=== PATIENT | female | born 1995 | race Caucasian/White ===

== ENCOUNTER → 2019-12-24 13:12 | Outpatient (BNVA) | payer BC, SELFPAY | PROVIDERS: Visit Provider Obstetrics & Gynecology | DX: Z01.89 Encounter for other specified special examinations (principal) | CPT/HCPCS: 84315 ==

== ENCOUNTER → 2020-01-19 13:25 | Outpatient (BNVA) | payer BC, SELFPAY | PROVIDERS: Visit Provider Nurse Practitioner Women's Health | DX: Z01.89 Encounter for other specified special examinations (principal) | CPT/HCPCS: 84315 ==

== ENCOUNTER → 2020-02-01 14:15 | Outpatient (BNVA) | payer BC, SELFPAY | PROVIDERS: Visit Provider Obstetrics & Gynecology | DX: Z36.89 Encounter for other specified antenatal screening (principal); Z3A.26 26 weeks gestation of pregnancy | CPT/HCPCS: 76816 ==

== ENCOUNTER → 2020-02-15 13:51 | Outpatient (BNVA) | payer BC, SELFPAY | PROVIDERS: Visit Provider Obstetrics & Gynecology | DX: Z34.93 Encounter for supervision of normal pregnancy, unspecified, third trimester (principal); Z04.89 Encounter for examination and observation for other specified reasons | CPT/HCPCS: 82950; 84315; 85027 ==

== ENCOUNTER → 2020-03-01 11:16 | Outpatient (BNVA) | payer BC, SELFPAY | PROVIDERS: Visit Provider Obstetrics & Gynecology | DX: Z46.89 Encounter for fitting and adjustment of other specified devices (principal) | CPT/HCPCS: 84315 ==

== ENCOUNTER → 2020-03-14 10:29 | Outpatient (BNVA) | payer BC, SELFPAY | PROVIDERS: Visit Provider Obstetrics & Gynecology | DX: Z01.89 Encounter for other specified special examinations (principal) | CPT/HCPCS: 84315 ==

== ENCOUNTER → 2020-03-28 08:11 | Outpatient (BNVA) | payer BC, SELFPAY | PROVIDERS: Visit Provider Obstetrics & Gynecology | DX: R31.9 Hematuria, unspecified (principal); Z34.82 Encounter for supervision of other normal pregnancy, second trimester | CPT/HCPCS: 80053; 84315 ==

== ENCOUNTER → 2020-04-11 14:31 | Outpatient (BNVA) | payer BC, SELFPAY | PROVIDERS: Visit Provider Obstetrics & Gynecology | DX: O99.013 Anemia complicating pregnancy, third trimester; Z3A.36 36 weeks gestation of pregnancy | CPT/HCPCS: 84315; 87081 ==

== ENCOUNTER 2020-05-11 04:30 | Inpatient (IN) | payer BC, SELFPAY ==
[2020-05-11] VITALS (97 sets, daily range): BP systolic 0–146; BP diastolic 0–93; PULSE 82–115; RESP 16–18; TEMP 36.4–37.3; O2SAT 92–99; BMI 27.4
[2020-05-11] MEDS: lactated ringers 1,000 ML 999 ML IV (04:55)
[2020-05-11 05:05] LABS: Basophils % 0.3 %; Eosinophils % 0.1 %; Hematocrit 35.3 % (37.0-47.0); Hemoglobin 11.7 g/dL (11.5-15.3); Lymphocytes # 1.3 10^3/uL (0.8-4.8); Lymphocytes % 8.6 %; Mean Corpuscular HGB Conc 33.1 g/dL (30.0-36.0); Mean Corpuscular Hemoglobin 29.8 pg (28.0-34.0); Mean Corpuscular Volume 90.1 fL (81-99); Mean Platelet Volume 11.7 fL (7.4-10.4); Monocytes # 0.7 10^3/uL (0.2-0.9); Monocytes % 4.6 %; Neutrophils # 12.6 10^3/uL (1.8-7.7); Nucleated Red Blood Cells % 0 %; Platelet Count 141 10^3/cmm (130-400); Red Blood Count 3.92 10^6/uL (4.1-5.3); Red Cell Distribution Width 14.1 % (12.1-15.1); White Blood Count 14.9 10^3/uL (4.0-10.0)
[2020-05-11] MEDS: lactated ringers 1,000 ML 125 ML IV (05:59)
--- NOTE | 2020-05-11 06:00 | ANES.PREANE2 ---
Pre-Anesthetic Assessment Pre-Anesthetic Assessment: Height/Weight: Height 1.68 m Weight 77.111 kg Temp Pulse Resp BP 97.6 F 97 18 134/81 05/11/20 05:00 05/11/20 05:56 05/11/20 05:00 05/11/20 05:56 Preop Diagnosis: labor Pains Proposed Procedure: epidural Familial anesthetic complications: none Was Beta John taken within 24 hours: N/A Social: Social History: No alcohol and No tobacco Exam: Pre-Anes Outpt Exam: alert, oriented x 3, clear to auscultation bilaterally and regular rate & rhythm Airway: Submandibular: WNL Cervical ROM: WNL MP: 2 Dentition: Full Pulmonary: Pulmonary: None reported CV/HEM: CV/HEM: Anemia : : None reported Hepatic: Hepatic: None reported GI: GI: GERD Metabolic: Metabolic: None reported Musc/skel: Musc/skel: None reported Neuropsych: Neuropsych: None reported Anesthetic Plan: ASA status: 2 Anesthesia: Eval. for regional block and Regional (specify below) Risk of > 500 ml blood loss (7ml/kg in children): No Meds/Allergies Current Medications: Current Medications Generic Name Dose Route Start Last Admin Trade Name Freq PRN Reason Stop Dose Admin Lactated Ringer's 1,000 mls @ 999 m ls/hr 05/11/20 04:23 05/11/20 05:59 Lactated Ringers IV 125 mls/hr .Q1H1M PRN Administration ANESTHESIA PFSH Anesthesia PFSH: Medical History No known health problems Denies diabetes, asthma, seizures, DVT/PE, hypertension. 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
--- NOTE | 2020-05-11 06:27 | P.ANES_ITS ---
Anesthesia Procedures Procedure/Date: 05/11/20 epidural Procedure Narrative: epidural complete, bolus given, epidural pump initiated with VEHICLE DYNAMICS ENGINEER education given, vitals taken during procedure using OBIX system and satisfactory throughout, patient admits to decrease pain, report of procedure to OB RN Epidural: Time Out Performed: Yes Consents Signed: Procedure Consent Consent: requested by attending/covering physician, from patient, risks and benefits reviewed and patient agrees to proceed Lumbar Level: L3-L4 Epidural position: sitting Epidural procedure: sterile prep of area, 1% lidocaine to numb the area (3 mL), 18 g needle, negative for paresthesia passed, neg for paresthesia, test dose given, 1.5% xylocaine 1:200k epi (5 mL), 0.2% Ropivacaine bolus ml (5 mL), placed PCEA, no systemic response, sterile dressing applied, L.U.D. no apparent complications and 0.2% Ropiavacaine @ mls/hr (13 mL/hr)
[2020-05-11] MEDS: dextrose 5%-lactated ringers 1,000 ML 125 ML IV (09:41)
[2020-05-11] MEDS: oxytocin 30 UNIT/500 ML BAG IV (09:41)
--- NOTE | 2020-05-11 14:16 | PM.DELIVERY ---
Delivery Note: Date of delivery: May 11, 2020 Pre-delivery diagnoses: 1. Term at 40-5/7 weeks gesation Post-delivery diagnoses: 1. Term at 40-5/7 weeks gestation - delivered 2. Viable male infant Procedure: Spontaneous vaginal delivery Op report anesthesia: Epidural Delivering Physician: Ziggy Gale MD Estimated blood loss (mL): 250 Pre-Delivery Course: Patient is a 24-year-old white female 2, para 0-0-1-0 with an LMP of 07/07/2019 and an EDC of 05/06/2020 based on a 10-week ultrasound, which placed her at 40-5/7 weeks gestation at the time of admission. She presented to labor and delivery at approximately 01:40 on 05/11/2020 with complaint of contractions. She was 3 cm dilated and 90% effaced. Over the next couple of hours she made cervical change and was found to be 5 cm dilated approximately 04:15. She became more uncomfortable and had epidural placed. By 05:30 she was 7 cm dilated. At 07:22, artificial rupture membranes was performed with clear fluid present. She was still 7 cm dilated at the time. She made minimal cervical exchange clerk the next couple of hours and as result of Pitocin augmentation was started. She is then started making cervical change and was found to be completely dilated at 12:50. Delivery: Patient started pushing at 13:00 and delivered at 13:34 as a spontaneous vaginal delivery of a right occiput transverse male fetus over an intact perineum under epidural anesthesia. Following delivery of the infant's head, 2 loops of nuchal cord were noted and reduced. The rest the infant delivered atraumatically with the left shoulder anterior. Nose and mouth were suctioned with bulb suction. Baby was spontaneously crying. It was placed on the mother's abdomen where the cord was clamped and then cut by the reported father the baby. Infant was left in the care of the waiting nurses. Cord blood was obtained. Pitocin bolus was started. Placenta delivered intact by simple expression at 13:39. The cervix and vagina were palpated and noted to be intact. The labia and perineum were inspected and noted to be intact except for a second-degree midline perineal laceration which was repaired with 3-0 Vicryl suture. She also had a hymenal ring laceration with hematoma formation at the 2 o'clock position which extended along the inner aspect of the labia minora and extended over top of it, adjacent to the clitoris. This was also repaired with 3-0 Vicryl suture. Findings 1. Viable male weighing 7 lbs 13 oz (3550 g) with a length of 21 inches and Apgars of 9 at 1 minute and 9 at 5 minutes. 2. Three-vessel cord with 2 loops of nuchal cord noted. 3. Normal-appearing placenta with a central cord insertion. Post-Delivery Status: Mother and were left to recover in satisfactory condition. A&P Assessment and plan (1) Term delivered: Status: Acute (2) Term of male : Status: Acute Coding Level of Care Code Acute Roofer Vinyl Coating for Chg Fwd Diagnoses Term delivered O80 Term of male Z37.0
[2020-05-11] MEDS: lanolin oint 7 gm 1 APPLIC TOPICAL (15:28)
[2020-05-11] MEDS: benzocaine-menthol 78 gm Canister 1 SPRAY TOPICAL (15:28)
--- NOTE | 2020-05-11 17:50 | PC.NURSE ---
pt up to bathroom without difficulty. void well. gerhard care performed and education given. dermoplast discussed. pad and gown changed. pt then ambulated to room 206-2 without difficulty. oriented to room/call light. proud parent pack discussed.
[2020-05-11] MEDS: docusate sodium 100 mg Capsule PO (20:54)
[2020-05-12 03:30] VITALS: BP 99/64; PULSE 92; RESP 18; TEMP 36.6
[2020-05-12 06:03] LABS: Hematocrit 29.9 % (37.0-47.0); Hemoglobin 9.8 g/dL (11.5-15.3); Mean Corpuscular HGB Conc 32.8 g/dL (30.0-36.0); Mean Corpuscular Hemoglobin 30.2 pg (28.0-34.0); Mean Platelet Volume 11.4 fL (7.4-10.4); Platelet Count 123 10^3/cmm (130-400); Red Blood Count 3.25 10^6/uL (4.1-5.3); Red Cell Distribution Width 14.3 % (12.1-15.1); White Blood Count 13.7 10^3/uL (4.0-10.0)
[2020-05-12] MEDS: prenatal vitamin Capsule 1 CAP PO (09:23)
[2020-05-12] MEDS: docusate sodium 100 mg Capsule PO (09:23)
[2020-05-12 09:24] VITALS: BP 115/72; PULSE 88; RESP 16; TEMP 36.4; O2SAT 96
--- NOTE | 2020-05-12 12:30 | P.DS_ITS ---
Discharge Providers FRACTIONATION SUPERVISOR Date of Admission: 05/11/20 04:30 Date of Discharge: 05/12/20 Attending Provider at Admission: Ziggy Gale MD Attending Provider at Discharge: Ziggy Gale MD Diagnoses at Discharge Discharge Diagnosis (1) Term delivered: Status: Acute (2) Term of male : Status: Acute Reason for Visit Reason for Visit: labor Hospital Course Hospital Course: Patient is a 24-year-old white female 2, para 0-0-1-0 with an LMP of 07/07/2019 and an EDC of 05/06/2020 based on a 10-week ultrasound, which placed her at 40-5/7 weeks gestation at the time of admission. She presented to L&D on 05/11/2020 at 01:40 with complaint of contractions. She was 90% effaced and 3 cm dilated at the time. She made cervical change manager the next couple of hours and was admitted. By 04:15 she was 5 cm dilated. She became more uncomfortable and had epidural placed. She was 7 cm dilated at 05:30. Artificial rupture membranes was performed with clear fluid at 07:22. Over the next several hours she made minimal cervical change and as a result Pitocin augmentation was started. She started progressing after that and was found to be completely dilated by 12: 50. She started pushing at 13:00 and delivered at 13:34 as a spontaneous vaginal delivery of a right occiput transverse male fetus over an intact perineum under epidural anesthesia. The baby weighed 7 lbs 13 oz (3550 g) with a length of 21 inches and Apgars of 9 at 1 minute and 9 at 5 minutes. She had a second-degree midline perineal laceration and a second-degree hymenal ring laceration at approximately the 2 o'clock position which extended along the inner aspect of the left labia minora and extended over the minora adjacent to the clitoris. Both of these were repaired with 3-0 Vicryl suture. DAY 1 Patient reports doing well. She states that her pain is been well controlled. She denied lightheadedness or dizziness with ambulation. She denied shortness of breath or chest pains. She reports tolerating a regular diet without nausea or vomiting. She denied any problems with urination. She states that her bleeding has slowed. Physical Exam: See below. Plan Patient doing well at this time. Discharge to home. Discharge instructions discussed with patient. Patient to follow-up in the office in approximately [address] Tineo, her primary FRACTIONATION SUPERVISOR. Information Peripartum Data: Infant Delivery Method: Vaginal Laceration description: Perineal - 2nd Degree (And second-degree left periurethral) Episiotomy description: None complications: none [place]: 1: Gender: Male Disposition of : home Physical Exam Const: COMMON NORMALS: no acute distress, average body habitus, alert and well nourished GENERAL APPEARANCE: well developed ORIENTATION/CONSCIOUSNESS: Yes oriented to person, Yes oriented to place and Yes oriented to time Resp: COMMON NORMALS: normal respiratory effort and clear to auscultation bilaterally AUSCULTATION: clear to auscultation bilaterally Cardio: COMMON NORMALS: regular rate, regular rhythm, No gallops present (Cardio) and No rub (Cardio) RATE: regular rate RHYTHM: regular rhythm HEART SOUNDS: Murmur heart sound present (2 out of 6 systolic) GI: COMMON NORMALS: Soft to palpation, non-tender, No hepatosplenomegaly present and no masses (Except for nontender firm uterus approximately 1 fingerbreadth below umbilicus) AUSCULTATION: Yes normoactive bowel sounds PALPATION: Yes Soft to palpation, Yes No hepatosplenomegaly present and No Hernia present : EXTERNAL FEMALE EXAM: No Hernia present Extremity: COMMON NORMALS: no calf tenderness GENERAL: Yes edema (Trace lower extremity) Neuro: SENSORIUM/ORIENTATION: Yes alert, Yes oriented to person, Yes oriented to place and Yes oriented to time Psych: COMMON NORMALS: normal affect MOOD & AFFECT: Yes euthymic mood Skin: COMMON NORMALS: no rashes or lesions noted GENERAL SKIN EXAM: no rashes or lesions noted Discharge Data Data Completed and Pending: Labs from last 24 hours 05/12/20 05:58 WBC 13.7 H RBC 3.25 L Hgb 9.8 L Hct 29.9 L MCV 92.0 MCH 30.2 MCHC 32.8 RDW 14.3 Plt Count 123 L MPV 11.4 H Vitals: Last Vital Signs Temp 97.5 F L 05/12/20 09:24 Pulse 88 05/12/20 09:24 Resp 16 05/12/20 09:24 BP 115/72 05/12/20 09:24 Pulse Ox 96 05/12/20 09:24 Discharge Plan Discharge Patient Disposition: Home, Self-Care Condition: Stable Prescriptions: New ibuprofen 800 mg Tablet 800 mg PO TID PRN (Reason: pain) Qty: 40 RF: 0 Continued vit-iron fum-folic ac 27-1 mg tablet 1 tab PO QDAY RF: 0 Discharge Orders: Discharge Order (Routine); Ordered 05/12/20 Ordered By: Ziggy Gale Referrals: Carissa Page MD [Physician] - 06/22/20 8:00 am (* Your 6 week follow up appointment is with Dr. Tineo at 8:00am ) Discharge Diet: Regular Discharge Activity: Resume usual activity Patient Instructions: Bleeding (DC), OB Discharge Report, OB Anesthesia Instructions, OB Food/Drug Interaction Guide, OB Home Care, OB Proud Parent Packet, OB Vaginal Deliveries - [facility] Discharge Attestations FRACTIONATION SUPERVISOR Time Spent in Discharge Care*: less than 30 min Coding Level of Care Code Acute Burial Vault Setter for Chg Fwd Diagnoses Term delivered O80 Term of male Z37.0
[2020-05-12 14:56] VITALS: BP 115/72; PULSE 88; RESP 16; TEMP 36.4; O2SAT 96
[2020-05-12 14:57] VITALS: BP 131/81; PULSE 89; RESP 18; TEMP 36.7; O2SAT 100
== END 2020-05-12 14:50 | disposition home or self-care (01) | DRG 807 ==
LOC: OPOB 04:37 → OBGYN 04:37
PROVIDERS: Admitting Provider Obstetrics & Gynecology; Visit Provider Obstetrics & Gynecology
DX: O69.2XX0 Labor and delivery complicated by other cord entanglement, with compression, not applicable or unspecified (principal); Z37.0 Single live birth; O70.1 Second degree perineal laceration during delivery; Z3A.40 40 weeks gestation of pregnancy
CPT/HCPCS: 12345; 36415; 51702; 59025; 59409; 85025; 85027; 99211; J2795